=== PATIENT | female | born 1955 | race Caucasian/White ===

== ENCOUNTER 2024-05-23 08:46 | Emergency (ER) | payer MEDICARE, SELFPAY ==
--- NOTE | ~2024-05-23 | XR_ITS ---
Clinical Indication: Cough PA and lateral views of the chest: Comparison: None Findings: The lungs are clear, without evidence of focal consolidation or pleural effusion. Cardiome diastinal silhouette is within normal limits. Bones and soft tissues are unremarkable. Impression: Normal chest. Reviewed, dictated and finalized at location . Impression: Normal chest.
[2024-05-23 08:58] VITALS: BP 157/98; PULSE 65; RESP 20; TEMP 36.9; O2SAT 96
--- OUTSIDE RECORDS SUMMARY | 2024-05-23 09:20 | XMS_ITS | Encounter Summary ---
Author Organization [facility] Address [address] [facility] [place] [address] Phone Care Team Providers Care Icer Air Conditioning Name Role Phone Maria A Younger MD Primary Care Provider [phone]- [phone] Reason for Visit * Reason Comments Medication Refill Encounter Details Date Type Department Care Team (Late st Contact Info) Description 08/18/2023 Refill [facility] - Primary Care - [place] [address] [place] [address] Maria A Younger MD [address] [place] [address] Medication Refill Social History Tobacco Use Types Packs/Day Years Used Date Smoking Tobacco: Former Cigarettes Q uit: 01/31/2022 Smokeless Tobacco: Never Alcohol Use Standard Drinks/Week Comments No 0 (1 standard drink = 0.6 oz pur e alcohol) [facility] Utilities Answer Date Recorded In the past 12 months has [employer] electric, gas, oil, or water company threatened to shut off services in your home? No 04/12/2023 Social Connection and Isolat ion Panel [NHANES] Answer Date Recorded In a typical week, how many times do you talk on the phone with family, friends, or neighbors? More than three times a week 04/12/2023 How often do you get togethe r with friends or relatives? More than three times a week 04/12/2023 How often do you attend chur ch or episcopalian services? Never 04/12/2023 Do you belong to any clubs o r organizations such as bahai groups, unions, fraternal or athletic groups, or school groups? No 04/12/2023 How often do you attend meet ings of the clubs or organizations you belong to? Never 04/12/2023 Are you , , di vorced, , never , or living with a partner? 04/12/2023 AUDIT-C Answer Date Recorded Q1: How often do you have a drink containing alcohol? Never 04/12/2023 Q2: How many drinks containi ng alcohol do you have on a typical day when you are drinking? Patient does not drink Q3: How often do you have si x or more drinks on one occasion? Never 04/12/2023 Overall Financial Resource Strain (CARDIA) Answe r Date Recorded How hard is it for you to pa y for the very basics like food, housing, medical care, and heating? Somewhat hard 04/12/2023 PHQ-2 Answer Date Recorded PHQ-2 Score 0 11/20/2018 [facility] [place] of Occupat ional Health - Occupational Stress Questionnaire Answer Date Recorded Do you feel stress - tense, restless, nervous, or anxious, or unable to sleep at night because your mind is troubled all the time - these days? Only a little 04/12/2023 Exercise Vital Sign Answer Date Recorde d On average, how many days pe r week do you engage in moderate to strenuous exercise (like a brisk walk)? 3 days 04/12/2023 On average, how many minutes do you engage in exercise at this level? 30 min 04/12/2023 Hunger Vital Sign Answer Date Recorded Within the past 12 months, y ou worried that your food would run out before you got the money to buy more. Never true 04/12/19 24 Within the past 12 months, t he food you bought just didn't last and you didn't have money to get more. Never true 04/12/2023 PRAPARE - Transportation Answer Date Re corded In the past 12 months, has l ack of transportation kept you from medical appointments or from getting medications? No 06/2023 In the past 12 months, has l ack of transportation kept you from meetings, work, or from getting things needed for daily living? No 04/12/2023 Housing Stability Vital Sign Answer Geovanni e Recorded In the last 12 months, was t here a time when you were not able to pay the mortgage or rent on time? No 04/12/2023 In the last 12 months, how many places have you lived? 1 04/12/2023 In the last 12 months, was t here a time when you did not have a steady place to sleep or slept in a mcc (including now)? No 04/12/2023 Education Answer Date Recorded What is the highest level of school you have completed or the highest degree you have received? Associate degree: academic program 10/01/2022 Comments No Sex and Gender Information Value Date Recorded Sex Assigned at Not on file Legal Sex Female 8:56 PM CDT Gender Identity Not on file Sexual Orientation Not on file documented as of this encounter Miscellaneous Notes * Telephone Encounter - Jefry Bello RN - 08/18/2023 8:11 AM CDT Medication(s) refilled and signed per [facility] Chronic Medication Refill Standing Order for Pediatricand Adult Patients. Requested Prescriptions Pending Prescriptions Disp Refills atenolol (TENORMIN) 50 MG Tablet [Pharmacy Med Name: ATENOLOL 50 MG TABLET] 180 Tablet 0 Sig: TAKE 1 TABLET BY MOUTH TWICE A DAY Atenolol Protocol Passed - 08/18/2023 12:18 AM Passed - BP on record in the past year Clinician-entered: BP Readings from Last 3 Encounters: 04/14/23 126/76 02/03/23 140/78 11/04/22 122/60 Patient-entered: No data recorded Passed - Visit with relevant provider in past 12 months or upcoming 90 days Recent Visits Date Type Provider Dept 04/14/23 Office Visit Maria A Younger MD [facility] 02/03/23 Office Visit Maria A Younger MD [facility] 11/04/22 Office Visit Mercedez Strauss MD [facility] 10/08/22 Office Visit Mercedez Strauss MD [facility] Showing recent visits within past 365 days and meeting all other requirements Future Appointments No visits were found meeting these conditions. Showing future appointments within next 90 days and meeting all other requirements documented in this encounter Plan of Treatment Upcoming Encounters Date Type Department Care Team (Late st Contact Info) Description 06/02/2024 4:00 PM CDT [facility] - [place] [address] [place] [address] Marissa Khan, HELICOPTER CREW CHIEF, DECORATING SUPERVISOR [address] [place] [address] documented as of this encounter Visit Diagnoses Diagnosis Essential hypertension Unspecified essential hypertension documented in this encounter Additional Health Concerns Assessment Noted Time PHQ-9 Depression Total Score: 0 03/17/19 20 11:00 AM OPERATIONS EXECUTIVE documented as of this encounter Care Teams Icer Air Conditioning Relationship Specialty Start Date End Date Maria A Younger MD [address] [place] [address] PCP - General Family Medicine 04/14/23 documented as of this encounter
--- OUTSIDE RECORDS SUMMARY | 2024-05-23 09:20 | XMS_ITS | Encounter Summary ---
Author Organization [facility] Address [address] [place] [address] Phone Care Team Providers Care Printed Circuit Board Pcb Draftsman Name Role Phone Tiffanie Child MD Primary Care Provider + [phone] Mercedez Strauss MD Primary Care Provider + [phone] Maria A Younger MD Primary Care Provider + [phone] Reason for Visit * Reason Comments Medication Refill Encounter Details Date Type Department Care Team (Late st Contact Info) Description 03/27/2020 [facility] [address] [place] [address] Tiffanie Child MD [address] [place] [address] Medication Refill Social History Tobacco Use Types Packs/Day Years Used Date Smoking Tobacco: Former Cigarettes Q uit: 10/07/2016 Smokeless Tobacco: Never Alcohol Use Standard Drinks/Week Comments No 0 (1 standard drink = 0.6 oz pur e alcohol) PHQ-2 Answer Date Recorded PHQ-2 Score 0 11/20/2018 Comments No Sex and Gender Information Value Date Recorded Sex Assigned at Not on file Legal Sex Female 8:56 PM CDT Gender Identity Not on file Sexual Orientation Not on file COVID-19 Exposure Response Date Recorded In the last month, have you been in contact with someone who was confirmed or suspected to have Coronavirus / COVID-19? No / Unsure 03/07/2020 8:51 AM FOOD AIDE documented as of this encounter Miscellaneous Notes * Telephone Encounter - Daisha Ramos RN - 03/27/2020 10:52 AM FOOD AIDE Medication approved and signed per standing order protocol. AIDE documented in this encounter Plan of Treatment Upcoming Encounters Date Type Department Care Team (Late st Contact Info) Description 06/02/2024 4:00 PM CDT [facility] - [facility] Care - [place] [address] [place] [address] Marissa Khan, NEAR EAST ARCHEOLOGY PROFESSOR, STRAP BUCKLER MACHINE [address] [place] [address] documented as of this encounter Visit Diagnoses Diagnosis Essential hypertension Unspecified essential hypertension Hyperlipidemia, unspecified hyperlipidemia type documented in this encounter Additional Health Concerns Infection Onset Date Last Indicated Resolved Time COVID - 19 01/31/2022 01/31/2022 02/10/2022 12:1 9 AM FOOD AIDE Assessment Noted Time PHQ-9 Depression Total Score: 0 03/17/19 20 11:00 AM FOOD AIDE documented as of this encounter Care Teams Printed Circuit Board Pcb Draftsman Relationship Specialty Start Date End Date Tiffanie Child MD PCP - General Family Medicine 11/25/14 02/13/22 Mercedez Strauss MD [address] [place] [address] PCP - General Family Medicine 02/14/22 04/13/23 Maria A Younger MD [address] [place] [address] PCP - General Family Medicine 04/14/23 documented as of this encounter
--- OUTSIDE RECORDS SUMMARY | 2024-05-23 09:20 | XMS_ITS | Referral Summary ---
Author Organization [facility] [employer] Address [address] [place] [place] [address] Care Team Providers Care Machinist Mechanic Name Role Phone Maria A Younger MD Primary Care Provider [phone] Source Comments [facility],non-owned Affiliates and Associated Physician Practices is amultiple site organization consisting of ambulatory clinics and hospital sitesin [place], [place], [place] and [place]. This disclosure is being madepursuant to the Care Everywhere program and may not contain all information available regarding this patient. Last updated 17.[facility] [employer] Social History Tobacco Use Types Packs/Day Years Used Date Smoking Tobacco: Never Assessed Sex and Gender Information Value Date Recorded Sex Assigned at Not on file Gender Identity Not on file Sexual Orientation Not on file Plan of Treatment Not on file Care Teams Machinist Mechanic Relationship Specialty Start Date End Date Maria A Younger MD [address] [place] [phone] PCP - General Family Medicine 08/31/23
--- OUTSIDE RECORDS SUMMARY | 2024-05-23 09:20 | XMS_ITS | Encounter Summary ---
Author Organization [facility] Address [address] [place] [address] Phone Care Team Providers Care Melter Supervisor Name Role Phone Tiffanie Child MD Primary Care Provider + [phone] Mercedez Strauss MD Primary Care Provider + [phone] Maria A Younger MD Primary Care Provider + [phone] Reason for Visit * Reason Comments Medication Refill Encounter Details Date Type Department Care Team (Late st Contact Info) Description 12/31/2021 Refill [facility] - Primary Care - [place] [address] [place] [address] Tiffanie Child MD [address] [place] [address] Medication Refill Social History Tobacco [...] encounter Miscellaneous Notes * Telephone Encounter - Tiffanie Child MD - 12/31/2021 1:06 PM CDT Last fasting labs done in November 2020. Need follow-up with labs done prior. * Telephone Encounter - Dolly Eduardo RN - 12/31/2021 8:58 AM CDT Medication failed the protocol, provider to review and approve the medication order if appropriate. Requested Prescriptions Pending Prescriptions Disp Refills atorvastatin (LIPITOR) 10 MG Tablet [Pharmacy Med Name: ATORVASTATIN CALCIUM 10MG TABLET] 90 Tablet0 Sig: TAKE 1 TABLET BY MOUTH EVERY DAY Hmg CoA Reductase Inhibitors Protocol Failed - 12/31/2021 8:50 AM Failed - Lipid panel in past 12 months LDL Date Value Ref Range Status 12/04/2020 68 5 - 130 mg/dL Final HDL CHOLESTEROL Date Value Ref Range Status 12/04/2020 47.9 >40 mg/dL Final CHOLESTEROL Date Value Ref Range Status 12/04/2020 134 <=200 mg/dL Final TRIGLYCERIDES Date Value Ref Range Status 12/04/2020 89 <150 mg/dL Final VLDL Date Value Ref Range Status 12/04/2020 18 5 - 55 mg/dL Final CHOL/HDL RATIO Date Value Ref Range Status 12/04/2020 2.8 0.0 - 4.4 Final NON-HDL CHOLESTEROL Date Value Ref Range Status 12/04/2020 86.1 <130 mg/dL Final Passed - Visit with relevant provider in past 12 months or upcoming 90 days Recent Visits Date Type Provider Dept 11/21/21 Office Visit Tiffanie Child MD [facility] 11/13/21 Office Visit Mauri Rosen PAC [facility] Showing recent visits within past 365 days and meeting all other requirements Future Appointments No visits were found meeting these conditions. Showing future appointments within next 90 days and meeting all other requirements levothyroxine (SYNTHROID) 50 MCG Tablet [Pharmacy Med Name: LEVOTHYROXINE SODIUM 50MCG TABLET] 90 Tablet 0 Sig: TAKE 1 TABLET BY MOUTH EVERY DAY Thyroid Hormones Protocol Failed - 12/31/2021 8:50 AM Failed - Normal TSH in past 12 months TSH Date Value Ref Range Status 12/04/2020 2.140 0.270 - 4.200 mIU/L Final Passed - Visit with relevant provider in past 12 months or upcoming 90 days Recent Visits Date Type Provider Dept 11/21/21 Office Visit Tiffanie Child MD [facility] [address] 11/13/21 Office Visit Mauri Rosen PAC [facility] Showing recent visits within past 365 days and meeting all other requirements Future Appointments No visits were found meeting these conditions. Showing future appointments within next 90 days and meeting all other requirements lisinopril-hydroCHLOROthiazide (PRINZIDE, ZESTORETIC) 20-12.5 MG Tablet [Pharmacy Med Name: LISINOPRIL/HYDROCHLOROTHIAZIDE 20-12.5 TABLET] 180 Tablet 0 Sig: TAKE 1 TAB BY MOUTH 2 TIMES DAILY. Nickolas Inhibitors and Diuretics Combo Protocol Failed - 12/31/2021 8:50 AM Failed - Serum potassium on record in past 12 months POTASSIUM Date Value Ref Range Status 12/04/2020 4.5 3.5 - 5.1 mmol/L Final Failed - Serum sodium on record in past 12 months SODIUM Date Value Ref Range Status 12/04/2020 138 136 - 144 mmol/L Final Failed - GFR on record in past 12 months GFR, EST. NONAFRICAN Date Value Ref Range Status 12/04/2020 >60 >=60 Final Passed - Blood pressure on record in past 12 months Clinician-entered: BP Readings from Last 3 Encounters: 11/21/21 120/70 11/13/21 120/58 12/11/20 120/64 Patient-entered: No data recorded Passed - Visit with relevant provider in past 12 months or upcoming 90 days Recent Visits Date Type Provider Dept 11/21/21 Office Visit Tiffanie Child MD [facility] 11/13/21 Office Visit Mauri Rosen PAC [facility] Showing recent visits within past 365 days and meeting all other requirements Future Appointments No visits were found meeting these conditions. Showing future appointments within next 90 days and meeting all other requirements documented in this encounter Plan of Treatment Upcoming Encounters Date Type Department Care Team (Chet st Contact Info) Description 06/02/2024 4:00 PM CDT [facility] - Primary Care - [place] [address] [place] [address] Marissa Khan, WAREHOUSE DISTRIBUTION SPECIALIST, FACIALIST [address] [place] [address] documented as of this encounter Visit Diagnoses Diagnosis Hyperlipidemia, unspecified hyperlipidemia type Hypothyroidism (acquired) Unspecified hypothyroidism Essential hypertension Unspecified essential hypertension documented in this encounter Additional Health Concerns Infection Onset Date Last Indicated Resolved Time COVID - 19 01/31/2022 01/31/2022 02/10/2022 12:1 9 AM CERTIFIED PHYSICIAN ASSISTANT Assessment Noted Time PHQ-9 Depression Total Score: 0 03/17/19 20 11:00 AM CERTIFIED PHYSICIAN ASSISTANT documented as of this encounter Care Teams Melter Supervisor Relationship Specialty Start Date End Date Tiffanie Child MD PCP - General Family Medicine 11/25/14 02/13/22 Mercedez Strauss MD [address] [place] [address] PCP - General Family Medicine 02/14/22 04/13/23 Maria A Younger MD [address] [place] [address] PCP - General Family Medicine 04/14/23 documented as of this encounter
--- OUTSIDE RECORDS SUMMARY | 2024-05-23 09:20 | XMS_ITS | Encounter Summary ---
Author Organization [facility] Address [address] [facility] [place] [address] Phone Care Team Providers Care Loop Tender Name Role Phone Mercedez Strauss MD Primary Care Provider Maria A Younger MD Primary Care Provider +- [phone] Reason for Visit * Reason Comments Medication Refill Encounter Details Date Type Department Care Team (Late st Contact Info) Description 03/17/2023 Refill [facility] Primary Care - [place] [address] [place] [address] Mauri Rosen PAC [address] [place] [address] Medication Refill Social History Tobacco Use Types Packs/Day Years Used Date Smoking Tobacco: Former Cigarettes Q uit: 01/31/2022 Smokeless Tobacco: Never Alcohol Use Standard Drinks/Week Comments No 0 (1 standard drink = 0.6 oz pur e alcohol) PHQ-2 Answer Date Recorded PHQ-2 Score 0 11/20/2018 Education Answer Date Recorded What is the [...] encounter Miscellaneous Notes * Telephone Encounter - Mitzy Mullins RN - 03/19/2023 11:06 AM GAS BURNER OPERATOR Duplicate request. BURNER OPERATOR * Telephone Encounter - Jefry Bello RN - 03/18/2023 9:40 AM CST Attempted to contact pt for [facility] appt. No answer, left message. BURNER OPERATOR documented in this encounter Plan of Treatment Upcoming Encounters Date Type Department Care Team (Late st Contact Info) Description 06/02/2024 4:00 PM CDT [facility] Visit [facility] - [place] [address] [place] [address] Marissa Khan, CASE MANAGEMENT ASSISTANT, THROW OUT CLERK [address] [place] [address] documented as of this encounter Visit Diagnoses Diagnosis Hypothyroidism (acquired) Unspecified hypothyroidism documented in this encounter Additional Health Concerns Assessment Noted Time PHQ-9 Depression Total Score: 0 03/17/19 20 11:00 AM GAS BURNER OPERATOR documented as of this encounter Care Teams Loop Tender Relationship Specialty Start Date End Date Mercedez Strauss MD [address] [place] [address] PCP - General Family Medicine 02/14/22 04/13/23 Maria A Younger MD [address] [place] [address] PCP - General Family Medicine 04/14/23 documented as of this encounter
--- OUTSIDE RECORDS SUMMARY | 2024-05-23 09:20 | XMS_ITS | Encounter Summary ---
Author Organization [facility] Address [address] [facility] [place] [address] Phone Care Team Providers Care Spanish Instructor Name Role Phone Maria A Younger MD Primary Care Provider [phone] Reason for Visit * Reason Comments Medication Refill Encounter Details Date Type Department Care Team (Late st Contact Info) Description 07/01/2023 Refill [facility] - Primary Care - [place] [address] [place] [address] Mercedez Strauss MD [address] [place] [address] Medication Refill Social History Tobacco Use Types Packs/Day Years Used Date Smoking Tobacco: Former Cigarettes Q uit: 01/31/2022 Smokeless Tobacco: Never Alcohol Use Standard Drinks/Week Comments No 0 (1 standard drink = 0.6 oz pur e alcohol) [facility] Utilities Answer Date Recorded In the past 12 months has [employer] electric, gas, oil, or water company threatened [...] often do you attend chur ch or adventism services? Never 04/12/2023 Do you belong to any clubs o r organizations such as denominational groups, unions, fraternal or athletic groups, or [...] Answer Date Recorded PHQ-2 Score 0 11/20/2018 [facility] [place] of Occupat ional Health - Occupational Stress [...] place to sleep or slept in a half-way (including now)? No 04/12/2023 Education Answer Date [...] encounter Miscellaneous Notes * Telephone Encounter - Esther Quintanilla RN - 07/01/2023 8:30 AM CDT Medication(s) refilled and signed per [facility] Chronic Medication Refill Standing Order for Pediatricand Adult Patients. Requested Prescriptions Pending Prescriptions Disp Refills alendronate (FOSAMAX) 70 MG Tablet [Pharmacy Med Name: ALENDRONATE SODIUM 70 MG TAB] 12 Tablet 0 Sig: TAKE 1 TABLET BY MOUTH ONE TIME PER WEEK Bone Density Regulators Protocol Passed - 07/01/2023 12:07 AM Passed - Visit with relevant provider in past 12 months or upcoming 90 days Recent Visits Date Type Provider Dept 04/14/23 Office Visit Maria A Younger MD [facility] 02/03/23 Office Visit Maria A Younger MD [facility] 11/04/22 Office Visit Mercedez Strauss MD [facility] 10/08/22 Office Visit Mercedez Strauss MD [facility] Showing recent visits within past 365 days and meeting all other requirements Future Appointments No visits were found meeting these conditions. Showing future appointments within next 90 days and meeting all other requirements Passed - Serum creatinine on record in past 12 months CREATININE, BLOOD Date Value Ref Range Status 10/08/2022 0.56 (L) 0.60 - 1.10 mg/dL Final Passed - Serum calcium on record in past 12 months CALCIUM Date Value Ref Range Status 10/08/2022 9.4 8.7 - 10.5 mg/dL Final documented in this encounter Plan of Treatment Upcoming Encounters Date Type Department Care Team (Late st Contact Info) Description 06/02/2024 4:00 PM CDT Office Visit [facility] - Primary Care - [place] [address] [place] [address] Marissa Khan APRN, KICK PRESS SETTER [address] [place] [address] documented as of this encounter Visit Diagnoses Diagnosis Low bone density documented in this encounter Additional Health Concerns Assessment Noted Time PHQ-9 Depression Total Score: 0 03/17/19 20 11:00 AM FINANCE ACCOUNTING INTERNSHIP documented as of this encounter Care Teams Spanish Instructor Relationship Specialty Start Date End Date Maria A Younger MD [address] [place] [address] PCP - General Family Medicine 04/14/23 documented as of this encounter
--- OUTSIDE RECORDS SUMMARY | 2024-05-23 09:20 | XMS_ITS | Clinical Summary ---
Author Organization [facility] Address [address] [place] [address] Care Team Providers Care Supply Tech Name Role Phone Maria A Younger MD Primary Care Provider [phone] Source Comments [facility],non-owned Affiliates and Associated Physician Practices is amultiple site organization consisting of ambulatory clinics and hospital sitesin [place], [place], [place] and [place]. This disclosure is being madepursuant to the Care Everywhere program and may not contain all information available regarding this patient. Last updated 17.[facility] Social History Tobacco Use Types Packs/Day Years Used Date Smoking Tobacco: Never Assessed Sex and Gender Information Value Date Recorded Sex Assigned at Not on file Gender Identity Not on file Sexual Orientation Not on file Plan of Treatment Health Maintenance Due Date Last Done Comments COLOGUARD (AGES 45-75) - COLON CA SCREENING 1956 COLON MONITORING 1956 COLONOSCOPY - COLON CA SCREENING 1956 CT COLONOGRAPHY - COLON CA SCREENING 1956 Colorectal Cancer Screening 1956 FIT - COLON CA SCREENING 1956 FLEX SIG - COLON CA SCREENING 1956 LIPID TESTING 1956 HEPATITIS C SCREENING 12/18/1974 DTAP/TDAP/TD VACCINES (1 - Tdap) 12/23/1975 PNEUMOCOCCAL VACCINE 50+ (1 of 1 - PCV) 2006 ZOSTER VACCINE (1 of 2) 2006 COVID-19 VACCINE (1 - 2023- season) 2023 INFLUENZA VACCINE (#1) 2023 2, 12/11/2020, 12/13/2019, Additional history exists DEPRESSION SCREENING 03/09/2024 MAMMOGRAM 01/01/2025 01/01/2023, 12/08, 12/25/2020, Additional history exists Respiratory Syncytial Virus (RSV) Vaccine Pt: or over 60 yrs (1 - 1-dose 75+ series) 12/23/2031 BONE DENSITY TESTING Completed 04/28/2022 HEPATITIS B VACCINE Aged Out No longe r eligible based on patient's age to complete this topic HIB VACCINE Aged Out No longer eligi ble based on patient's age to complete this topic HPV VACCINE Aged Out No longer eligi ble based on patient's age to complete this topic MENINGOCOCCAL (Group B) VACCINE SHARED DECISION-MAKING Aged Out No longer eligible based on patient's age to complete this topic MENINGOCOCCAL GROUPS A/C/Y/W VACCINE Aged Out No longer eligible based on patient's age to complete this topic Care Teams Supply Tech Relationship Specialty Start Date End Date Maria A Younger MD [address] [place] [phone] PCP - General Family Medicine 08/31/23
--- OUTSIDE RECORDS SUMMARY | 2024-05-23 09:20 | XMS_ITS | Encounter Summary ---
Author Organization [facility] Address [address] [place] [address] Phone Care Team Providers Care Steel Engraver Name Role Phone Mercedez Strauss MD Primary Care Provider Maria A Younger MD Primary Care Provider [phone] Reason for Visit * Reason Comments Medication Refill Encounter Details Date Type Department Care Team (Late st Contact Info) Description 04/10/2023 Refill [facility] - Primary Care - Akhil [address] [place] [address] Mercedez Strauss MD [address] [place] [address] Medication Refill Social History Tobacco Use Types Packs/Day Years Used Date Smoking Tobacco: Former Cigarettes Q uit: 01/31/2022 Smokeless Tobacco: Never Alcohol Use Standard Drinks/Week Comments No 0 (1 standard drink = 0.6 oz pur e alcohol) [facility] Utilities Answer Date Recorded In the past 12 months has [employer], gas, oil, or water company threatened to [...] often do you attend chur ch or jain services? Never 04/12/2023 Do you belong to any clubs o r organizations such as zoroastrianism groups, unions, fraternal or athletic groups, or [...] Answer Date Recorded PHQ-2 Score 0 11/20/2018 [facility] [place] of Occupat ional Health - Occupational Stress [...] place to sleep or slept in a fdc (including now)? No 04/12/2023 Education Answer Date [...] on file documented as of this encounter Functional Status * Audit-C Score Answer Date of Assessment Author 0 04/12/2023 10:09 AM HOME HEALTH CAREGIVER [employer], System Background * Within the last year, have you been humiliated or emotionally abused in other ways by your partner or ex-partner? Answer Date of Assessment Author No 04/12/2023 10:09 AM HOME HEALTH CAREGIVER [employer], System Background * Within the last year, have you been afraid of your partner or ex-partner? Answer Date of Assessment Author No 04/12/2023 10:09 AM HOME HEALTH CAREGIVER [employer], System Background * Within the last year, have you been raped or forced to have any kind of sexual activity by your partner or ex-partner? Answer Date of Assessment Author No 04/12/2023 10:09 AM HOME HEALTH CAREGIVER [employer], System Background * Within the last year, have you been kicked, hit, slapped, or otherwise physically hurt by your partner or ex-partner? Answer Date of Assessment Author No 04/12/2023 10:09 AM HOME HEALTH CAREGIVER My[employer], System Background * Q1: How often do you have a drink containing alcohol? Answer Date of Assessment Author Never 04/12/2023 10:09 AM HOME HEALTH CAREGIVER [employer], System Background * Q2: How many drinks containing alcohol do you have on a typical day when you are drinking? Answer Date of Assessment Author Patient does not drink 04/12/2023 10:09 AM HOME HEALTH CAREGIVER [employer], System Background * Q3: How often do you have six or more drinks on one occasion? Answer Date of Assessment Author Never 04/12/2023 10:09 AM HOME HEALTH CAREGIVER [employer], System Background documented as of this encounter Plan of Treatment Upcoming Encounters Date Type Department Care Team (Late st Contact Info) Description 06/02/2024 4:00 PM CDT Office Visit [facility] - Primary Care - [place] [address] [place] [address] Marissa Khan, EDUCATIONAL PROGRAM DIRECTOR, POLITICAL CARTOONIST [address] [place] [address] documented as of this encounter Visit Diagnoses Diagnosis Low bone density documented in this encounter Additional Health Concerns Assessment Noted Time PHQ-9 Depression Total Score: 0 03/17/19 20 11:00 AM HOME HEALTH CAREGIVER documented as of this encounter Care Teams Steel Engraver Relationship Specialty Start Date End Date Mercedez Strauss MD [address] [place] [address] PCP - General Family Medicine 02/14/22 04/13/23 Maria A Younger MD [address] [place] [address] PCP - General Family Medicine 04/14/23 documented as of this encounter
--- OUTSIDE RECORDS SUMMARY | 2024-05-23 09:20 | XMS_ITS | Encounter Summary ---
Author Organization [facility] Address [address] [facility] [address] Phone Care Team Providers Care Wire Mesh Gate Assembler Name Role Phone Maria A Younger MD Primary Care Provider [phone] Reason for Visit * Reason Comments Medication Refill Encounter Details Date Type Department Care Team (Late st Contact Info) Description 08/22/[address] [facility] - Primary Care - Akhil [address] [place] [address] Maria A Younger MD [address] [place] [address] Medication Refill Social History Tobacco Use Types Packs/Day Years Used Date Smoking Tobacco: Former Cigarettes Q uit: 01/31/2022 Smokeless Tobacco: Never Alcohol Use Standard Drinks/Week Comments No 0 (1 standard drink = 0.6 oz pur e alcohol) [facility] Utilities Answer Date Recorded In the past 12 months has [employer] electric, gas, oil, or water company threatened [...] often do you attend chur ch or catholic services? Never 04/12/2023 Do you belong to any clubs o r organizations such as worship groups, unions, fraternal or athletic groups, or [...] Answer Date Recorded PHQ-2 Score 0 11/20/2018 [facility] [place] of Occupat ional Health - Occupational Stress [...] place to sleep or slept in a prison (including now)? No 04/12/2023 Education Answer Date [...] Telephone Encounter - Jefry Bello RN - 08/24/2023 8:51 AM CDT Medication(s) refilled and signed per [facility] Chronic Medication Refill Standing Order for Pediatricand Adult Patients. Requested Prescriptions Pending Prescriptions Disp Refills atorvastatin (LIPITOR) 10 MG Tablet [Pharmacy Med Name: ATORVASTATIN 10 MG TABLET] 90 Tablet 0 Sig: TAKE 1 TABLET BY MOUTH EVERY DAY Hmg CoA Reductase Inhibitors Protocol Passed - 08/22/2023 7:14 AM Passed - Visit with relevant provider in past 12 months or upcoming 90 days Recent Visits Date Type Provider Dept 04/14/23 Office Visit Maria A Younger MD [facility] 02/03/23 Office Visit Maria A Younger MD [facility] 11/04/22 Office Visit Mercedez Strauss MD [facility] 10/08/22 Office Visit Mercedez Strauss MD [facility] Showing recent visits within past 365 days and meeting all other requirements Future Appointments No visits were found meeting these conditions. Showing future appointments within next 90 days and meeting all other requirements Passed - Lipid panel in past 12 months LDL Date Value Ref Range Status 10/08/2022 68 5 - 130 mg/dL Final HDL CHOLESTEROL Date Value Ref Range Status 10/08/2022 44.5 >40 mg/dL Final CHOLESTEROL Date Value Ref Range Status 10/08/2022 134 <200 mg/dL Final TRIGLYCERIDES Date Value Ref Range Status 10/08/2022 106 <150 mg/dL Final VLDL Date Value Ref Range Status 10/08/2022 21 5 - 55 mg/dL Final CHOL/HDL RATIO Date Value Ref Range Status 10/08/2022 3.0 0.0 - 4.4 Final NON-HDL CHOLESTEROL Date Value Ref Range Status 10/08/2022 89.5 <130 mg/dL Final Passed - CMP in past 12 months SODIUM Date Value Ref Range Status 10/08/2022 137 136 - 144 mmol/L Final POTASSIUM Date Value Ref Range Status 10/08/2022 4.1 3.5 - 5.1 mmol/L Final CHLORIDE Date Value Ref Range Status 10/08/2022 100 100 - 110 mmol/L Final CO2, VENOUS Date Value Ref Range Status 10/08/2022 27 22 - 32 mmol/L Final ANION GAP Date Value Ref Range Status 10/08/2022 14.1 8.0 - 20.0 mmol/L Final GLUCOSE Date Value Ref Range Status 10/08/2022 92 70 - 99 mg/dL Final BUN Date Value Ref Range Status 10/08/2022 12 8 - 23 mg/dL Final CREATININE, BLOOD Date Value Ref Range Status 10/08/2022 0.56 (L) 0.60 - 1.10 mg/dL Final BUN/CREATININE RATIO Date Value Ref Range Status 10/08/2022 21 (H) 12 - 20 ratio Final TOTAL PROTEIN Date Value Ref Range Status 10/08/2022 6.7 6.0 - 8.3 g/dL Final ALBUMIN Date Value Ref Range Status 10/08/2022 4.2 3.5 - 5.2 g/dL Final Comment: The colormetric methods used for the determination of Albumin may lead to falsely elevated test results in patients suffering from renal failure or insufficiency due to interference with other proteins. A/G RATIO Date Value Ref Range Status 10/08/2022 1.7 1.0 - 2.0 Final CALCIUM Date Value Ref Range Status 10/08/2022 9.4 8.7 - 10.5 mg/dL Final T BILI Date Value Ref Range Status 10/08/2022 0.5 0.2 - 1.2 mg/dL Final SGOT (AST) Date Value Ref Range Status 10/08/2022 18 <=32 U/L Final SGPT (ALT) Date Value Ref Range Status 10/08/2022 18 <=41 U/L Final ALKALINE PHOSPHATASE Date Value Ref Range Status 10/08/2022 67 35 - 105 U/L Final GFR, EST. NONAFRICAN Date Value Ref Range Status 10/08/2022 >60 >=60 Final GFR, EST. Date Value Ref Range Status 10/08/2022 >60 >=60 Final GFR, ESTIMATED Date Value Ref Range Status 10/08/2022 >60 >=60 Final Comment: Creatinine Clearance is the preferred criteria for selecting drug dose adjustments in renally impaired patients. The GFR is provided as additional pertinent clinical information. GFR is reported in mL/min/1.73 sq m. Calculation based on the Chronic Kidney Disease Epidemiology Collaboration (CKD- EPI) equation refitwithout adjustment for race. IS THE PATIENT REQUIRED TO BE FASTING? Date Value Ref Range Status 10/08/2022 No Final documented in this encounter Plan of Treatment Upcoming Encounters Date Type Department Care Team (Late st Contact Info) Description 06/02/2024 4:00 PM CDT Office Visit [facility] - Primary Care - Akhil [address] [place] [address] Marissa Khan, SENIOR SQL DEVELOPER, FUR MIXER OPERATOR [address] [place] [address] documented as of this encounter Visit Diagnoses Diagnosis Hyperlipidemia, unspecified hyperlipidemia type documented in this encounter Additional Health Concerns Assessment Noted Time PHQ-9 Depression Total Score: 0 03/17/19 20 11:00 AM ENTRY LEVEL STAFF ACCOUNTANT documented as of this encounter Care Teams Wire Mesh Gate Assembler Relationship Specialty Start Date End Date Maria A Younger MD [address] [place] [address] PCP - General Family Medicine 04/14/23 documented as of this encounter
--- OUTSIDE RECORDS SUMMARY | 2024-05-23 09:20 | XMS_ITS | Patient Health Summary ---
Author Organization [facility] Address [address] [place] [address] Care Team Providers Care Foreign Language Professor Name Role Phone Maria A Younger MD Primary Care Provider [phone] Note from [facility],non-owned Affiliates and Associated Physician Practices is amultiple site organization consisting of ambulatory clinics and hospital sitesin [place], [place], [place] and [place]. This disclosure is being madepursuant to the Care Everywhere program and may not contain all information available regarding this patient. Last updated 17.[facility] Social History Tobacco Use Types Packs/Day Years Used Date Smoking Tobacco: Never Assessed Sex and Gender Information Value Date Recorded Sex Assigned at Not on file Gender Identity Not on file Sexual Orientation Not on file Care Teams Foreign Language Professor Relationship Specialty Start Date End Date Maria A Younger MD [address] [place] [phone] PCP - General Family Medicine 08/31/23
--- OUTSIDE RECORDS SUMMARY | 2024-05-23 09:20 | XMS_ITS | Encounter Summary ---
Author Organization [facility] Address [address] [facility] [place] [address] Phone Care Team Providers Care University Tutor Name Role Phone Maria A Younger MD Primary Care Provider [phone] Reason for Visit * Reason Onset Date Comments Cough 05/23/2024 Nasal Congestion 05/23/2024 Encounter Details Date Type Department Care Team (Late st Contact Info) Description 05/23/2024 Nurse Triage [facility] [address] [place] [address] Maria A Younger MD [address] [place] [address] Cough; Nasal Congestion Social History Tobacco Use Types Packs/Day Years Used Date Smoking Tobacco: Former Cigarettes Q uit: 01/31/2022 Smokeless Tobacco: Never Alcohol Use Standard Drinks/Week Comments No 0 (1 standard drink = 0.6 oz pur e alcohol) [facility] Utilities Answer Date Recorded In the past 12 months has [employer] electric, gas, oil, or water company threatened [...] often do you attend chur ch or restorationism services? Never 04/12/2023 Do you belong to any clubs o r organizations such as pentecostalism groups, unions, fraternal or athletic groups, or [...] Answer Date Recorded PHQ-2 Score 0 11/20/2018 [facility] of Occupat ional Health - Occupational Stress [...] place to sleep or slept in a fci (including now)? No 04/12/2023 Education Answer Date [...] Miscellaneous Notes * Telephone Encounter - Jefry Omer RN - 05/23/2024 7:37 AM CDT SITUATION: cold symptoms BACKGROUND: Patient contacting PCP office. Started 2 weeks ago, started with sore throat and chills ASSESSMENT: Symptom Description / Location: Sinus drainage Sinus pressure/throbbing sensation Only with certain movements 2 weeks Cough The last couple of days Productive Green phlegm. Shortness of breath with exertion And with coughing fits SPO2: 98% HR: 73 bpm Pain: Caller denies pain. Fever: Denies fever. Chills. Treatment / Response: coricidin with some relief. RECOMMENDATION: Caller agreeable to disposition: go to office now. Care advice provided per triage guideline. Caller verbalized understanding. Due to office unavailability within disposition, advised for patient to be seen at prompt care or urgent care. Caller agreeable to prompt care/urgent care. Discussed utilizing [facility] to: find [facility] or [facility] - See care advice and disposition for Guideline. First positive answer recorded, all responses to prior questions were negative. If symptoms increase, change or if new symptoms develop, call your health care provider or call back. Recommendations were based on caller information and is not a diagnosis. Verified and reviewed all triage information with caller. Reason for Disposition MILD difficulty breathing (e.g., minimal/no SOB at rest, SOB with walking, pulse <100) and stillpresent when not coughing Protocols used: Cough-A-OH * Telephone Encounter - Mg Adkins - 05/23/2024 7:35 AM CDT Symptoms: Sinus Symptoms, Colds, Chest Congestion, Runny Nose Outcome: Schedule an appointment at earliest convenience. Reason: Caller denied all higher acuity questions The caller accepted this outcome. Caller Denied: * Any trouble breathing through the mouth * Severe headache * Trouble swallowing * Wheezing (high-pitched whistling sound) * Red swelling on cheek or around eye documented in this encounter Plan of Treatment Upcoming Encounters Date Type Department Care Team (Late st Contact Info) Description 06/02/2024 4:00 PM CDT [facility] Care - [place] [address] [place] [phone] Marissa Khan, CARBONATING STONE CLEANER, CHIEF CRNA [address] [place] [address] documented as of this encounter Visit Diagnoses Not on filedocumented in this encounter Additional Health Concerns Assessment Noted Time PHQ-9 Depression Total Score: 0 03/17/19 20 11:00 AM VICE PRESIDENT OF HUMAN RESOURCES documented as of this encounter Care Teams University Tutor Relationship Specialty Start Date End Date Maria A Younger MD [address] [place] [address] PCP - General Family Medicine 04/14/23 documented as of this encounter
--- OUTSIDE RECORDS SUMMARY | 2024-05-23 09:20 | XMS_ITS | Clinical Summary ---
Author Organization [facility] Address [address] [place] [address] Phone Care Team Providers Care Saddle And Side Wire Stitcher Name Role Phone Maria A Younger MD Primary Care Provider [phone] Allergies Active Allergy Reactions Criticality Noted Date Comments Levofloxacin In D5w Other (see Comments) Low 2016 Affects legs- legs were like noodles Penicillins Hives Medium Medications Aspirin 81 MG Tablet Take 81 mg by mouth daily. Active Multiple Vitamin (MULTIVITAMINS PO) Take 1 Tab by mouth daily. Active Ascorbic Acid (Vitamin C) 1000 MG Tablet Take 1,000 mg by mouth daily. Active Cholecalciferol (Vitamin D-3) 125 MCG (5000 UT) Tablet Take 125 mcg by mouth daily. Active calcium 600 MG Tablet Take 600 mg by mouth daily. Active lisinopril-hydroCH LOROthiazide (PRINZIDE, ZESTORETIC) 20-12.5 MG TabletIndications: Essential hypertension Take 1 Tablet by mouth daily. 180 Tablet 12/08/19 24 Active atorvastatin (LIPITOR) 10 MG TabletIndications: Hyperlipidemia, unspecified hyperlipidemia type TAKE 1 TABLET BY MOUTH EVERY DAY 90 Tablet 02/15/20 24 Active atenolol (TENORMIN) 50 MG TabletIndications: Essential hypertension TAKE 1 TABLET BY MOUTH TWICE A DAY 180 Tablet 03/07/20 24 Active levothyroxine (SYNTHROID) 50 MCG TabletIndications: Hypothyroidism (acquired) Take 1 Tablet by mouth daily. 90 Tablet 03/08/20 24 Active alendronate (FOSAMAX) 70 MG TabletIndications: Low bone density TAKE 1 TABLET BY MOUTH ONE TIME PER WEEK 12 Tablet 05/03/19 25 Active alendronate (FOSAMAX) 70 MG TabletIndications: Low bone density TAKE 1 TABLET BY MOUTH ONE TIME PER WEEK 12 Tablet 02/08/20 24 025 Discontinued Active Problems Problem Noted Date Diagnosed Date COPD with exacerbation 01/31/2022 Tobacco dependency 01/31/2022 Hypomagnesemia 01/31/2022 Pulmonary emphysema 09/25/2016 Hypothyroidism (acquired) 04/16/2015 Essential hypertension 04/16/2015 HLD (hyperlipidemia) 04/16/2015 Vitamin D deficiency 04/16/2015 Osteopenia 04/16/2015 Resolved Problems Problem Noted Date Diagnosed Date Resolved Date Obesity (BMI 30.0-34.9) 01/04/2018 100 07/2020 Tachycardia 01/01/2017 01/04/2018 Encounters Date Type Department Care Team Description 05/23/2024 Nurse Triage [facility] [address] [place] [phone] Maria A Younger MD Cough; Nasal Congestion 05/17/2024 Refill [facility] [place] [address] [place] [address] Maria A Younger MD Medication Refill 05/01/2024 Refill [facility] [place] [id number] [place] [address] Maria A Younger MD Medication Refill 03/08/2024 MyChart RX Renewal [facility] [place] [address] [place] [address] Maria A Younger MD Medication Renewal Reviewed 03/05/2024 Refill [facility] [place] [address] [place] [address] Maria A Younger MD Medication Refill from Last 3 Months Immunizations Immunization Administration Dates Next Due Influenza Vaccine greater than 3 yrs 12/02/2011 Influenza Vaccine, Quadrivalent, PF 12/0 11/2021,12/11/2020,12/13/2019,03/17,01/04/2018 Influenza, Seasonal, Injecta ble, Undefined 12/02/2011 Pneumococcal Vaccine Adult - 23 Valent 0 Pneumococcal conjugate PCV20 , polysaccharide [id number] conjugate, adjuvant, PF 02/14/2022 TDAP Vaccine 04/22/2013 Family History Medical History Relation Name Comments Hypertension Brother Stroke Brother Heart Disease Father Hypertension Father Cancer Mother Hypertension Mother Relation Name Status Comments Brother Father Mother Social History Tobacco Use Types Packs/Day Years Used Date Smoking Tobacco: Former Cigarettes Q uit: 01/31/2022 Smokeless Tobacco: Never Tobacco Cessation:Counseling Given: Not Answered Alcohol Use Standard Drinks/Week Comments No 0 (1 standard drink = 0.6 oz pur e alcohol) [facility] [employer] Answer Date Recorded In the past 12 months has [employer], gas, oil, or water [employer] threatened to shut off services in your [...] often do you attend chur ch or buddhism services? Never 04/12/2023 Do you belong to any clubs o r organizations such as evangelical groups, unions, fraternal or athletic groups, or [...] Answer Date Recorded PHQ-2 Score 0 11/20/2018 [facility] [place] [facility] Occupat ional Health - Occupational Stress [...] place to sleep or slept in a long-term (including now)? No 04/12/2023 Education Answer Date Recorded What is the highest level of school you have completed or the highest degree you have received? Associate degree: academic program 10/01/2022 Comments No Sex and Gender Information Value Date Recorded Sex Assigned at Not on file Legal Sex Female 8:56 PM CDT Gender Identity Not on file Sexual Orientation Not on file Last Filed Vital Signs Vital Sign Reading Time Taken Comments Blood Pressure 120/72 10/19/2023 11:18 AM CDT Pulse 66 10/19/2023 11:18 AM CDT Temperature 36.1 C (97 F) 10/19/2023 11:18 AM CDT Respiratory Rate 20 10/19/2023 11:18 AM CDT Oxygen Saturation 96% 10/19/2023 11:18 AM CDT Inhaled Oxygen Concentration - - Weight 74.4 kg (164 lb) 10/19/2023 11:18 AM CDT Height 154.9 cm (5' 1 ) 10/19/2023 11:18 AM CDT Body Mass Index 30.99 10/19/2023 11:18 AM CDT Plan of Treatment Upcoming Encounters Date Type Department Care Team (Late st Contact Info) Description 06/02/2024 4:00 PM CDT Office Visit [facility] [place] [address] [place] [address] Marissa Khan, BILL HIKER, FOOD CROPS FARM HAND [address] [place], [place] [id number] Health Maintenance Due Date Last Done Comments Cologuard 2006 Immunochemical Fecal Occult Blood 2006 Respiratory Syncytial Virus (RSV) Immunization (Adult) (1 - Risk 60-74 years 1-dose series) 2016 Td Immunization Every 10 Years (Adults With 1 Tdap) 04/22/2023 04/22/2013 SARS-COV-2 Immunization ( - season) 2023 06/14/2020 Mammogram 01/02/2024 01/01/2023, 12/07, 09/27/2018, Additional history exists DEXA Bone Density 04/28/2024 04/28/2022 Zoster Immunization (2 of 2) 05/05/2024 03/10/2024 Colonoscopy 04/27/2027 04/27/2017 Colorectal Cancer Screening 04/27/2027 04/27/2017 Cervical Cancer Screening (CCS) Discontinued HPV/Cotest Discontinued 12/11/2020 Pap Smear Discontinued 12/11/2020, 09/22/2014 Pneumococcal Immunization (50+ years) Completed 02/14/2022, 03/17/2019 Pneumococcal Immunization Combined Discontinued 02/14/2022, 03/17/2019 Hepatitis C Virus (HCV) Screening Completed 10/08/2022 Influenza Immunization Completed 5, 02/14/2022, 12/11/2020, Additional history exists Hepatitis B Immunization Aged Out No longer eligible based on patient's age to complete this topic Meningococcal Immunization (ACWY) Aged Out No longer eligible based on patient's age to complete this topic Rotavirus Immunization Aged Out No lo nger eligible based on patient's age to complete this topic Procedures Procedure Name Priority Date/Time Associated Diagnosis Comments ALBERT SCREENING BILATERAL DIGITAL W CAD W KARI Routine 01/01/2023 3:41 PM CDT Encounter for screening mammogram for breast cancer Post-menopausal HEPATITIS C ANTIBODY Routine 10/08/2022 11:06 AM CDT Need for hepatitis C screening test ALBERT BONE DENSITOMETRY AXIAL SKELETON Routine 04/28/2022 9:48 AM PAPER RULER Arthritis Encounter for screening for osteoporosis PATHOLOGY CYTOLOGY MEAT PULLER Routine 12/11/2020 8:42 AM CDT Well woman exam with routine gynecological exam HUMAN PAPILLOMA VIRUS (HPV) Routine 12/11/2020 8:31 AM CDT Well woman exam with routine gynecological exam HM COLONOSCOPY Routine 04/27/2017 from Last 3 Months or Most Recently Relevant to Health Maintenance Results * ALBERT SCREENING BILATERAL DIGITAL W CAD W KARI (01/01/2023 3:41 PM CDT) Anatomical Region Laterality Modality breast Bilateral Mammography 01/01/2023 3:22 PM CDT Narrative 01/02/2023 7:54 AM CDT - ALBERT SCREENING BILATERAL DIGITAL W CAD W KARI BILATERAL DIGITAL SCREENING MAMMOGRAM 3D/2D WITH CAD WITH MEDIOLATERAL OBLIQUE CRANIOCAUDAL: 01/01/2023 The study was acquired using digital technology and interpreted from soft copy. Current study was also evaluated with ICAD version 7.2. 2D digital mammographic views, as well as 3D digital tomosynthesis were performed in the CC and MLO projections. CLINICAL: Routine screening. Patient has no complaints. Patient has COPD, additional images due to subtle motion. No personal history of cancer. No family history of breast cancer. COMPARISONS: Comparison is made to exams dated: 12/25/2020, 09/27/2018, and 09/22/2017 [facility]. BREAST TISSUE:There are scattered fibroglandular densities in both breasts. FINDINGS: There are benign calcifications in both breasts. No significant masses, calcifications, or other findings are seen in either breast. There has been no significant interval change. IMPRESSION: BI-RAD 2 BENIGN There is no mammographic evidence of malignancy. A 1 year screening mammogram is recommended. A letter will be sent to the patient with these results. The patient will be entered into a reminder system with a target due date of 1 year for her next screening exam. Electronically signed by: Harpal huang/terrence:01/01/2023 23:03:50 Workers' Compensation Mediator(s): RT Margarito(R)(M), [facility] letter sent: Normal Exam Reading location: [facility] BI-RADS: 2 Benign Procedure Note Harpal Krueger MD - 01/02/2023 - ALBERT SCREENING BILATERAL DIGITAL W CAD W KARI BILATERAL DIGITAL SCREENING MAMMOGRAM 3D/2D WITH CAD WITH MEDIOLATERAL OBLIQUE CRANIOCAUDAL: 01/01/2023 The study was acquired using digital technology and interpreted from soft copy. Current study was also evaluated with ICAD version 7.2. 2D digital mammographic views, as well as 3D digital tomosynthesis were performed in the CC and MLO projections. CLINICAL: Routine screening. Patient has no complaints. Patient has COPD, additional images due to subtle motion. No personal history of cancer. No family history of breast cancer. COMPARISONS: Comparison is made to exams dated: 12/25/2020, 09/27/2018, and 09/22/2017 [facility]. BREAST TISSUE:There are scattered fibroglandular densities in both breasts. FINDINGS: There are benign calcifications in both breasts. No significant masses, calcifications, or other findings are seen in either breast. There has been no significant interval change. IMPRESSION: BI-RAD 2 BENIGN There is no mammographic evidence of malignancy. A 1 year screening mammogram is recommended. A letter will be sent to the patient with these results. The patient will be entered into a reminder system with a target due date of 1 year for her next screening exam. Electronically signed by: Harpal huang/terrence:01/01/2023 23:03:50 Workers' Compensation Mediator(s): Jane Gibson RT(R)(M), [facility] letter sent: Normal Exam Reading location: [facility] BI-RADS: 2 Benign us Mercedez Strauss MD IMG MAMMO ORDERABLES Final R esult * HEPATITIS C ANTIBODY (10/08/2022 11:06 AM CDT) hepatitis C antibody 0.13 <1 S/CO [facility] ARCH [id number] B 10/08/2022 9:14 PM CDT [facility] Comment: Signal/Cutoff ratio < 0.79 is Nondetected Signal/Cutoff ratio 0.80-0.99 is Grayzone Signal/Cutoff ratio > 0.99 is Detected Supplemental assays are recommended if signal/cutoff ratio is >/=1.00. Signal/cutoff ratio result >/= 5.00 is 97% predictive of positivity for recombinant immunoblot assay (RIBA) and will be reported to the [place] Department of Public Health as required. Blood Venipuncture / Unknown 10/08/2022 11:06 AM CDT 10/08/2022 11:06 AM CDT us Mercedez Strauss MD CHEMISTRY ORDERABLES Final R esult [facility] [address] [place] [address], [place] * [facility] BONE DENSITOMETRY AXIAL SKELETON (04/28/2022 9:48 AM PAPER RULER) Anatomical Region Laterality Modality BODY N/A Computed Radiogr aphy 04/28/2022 1:33 PM PAPER RULER Impressions 04/28/2022 1:35 PM PAPER RULER IMPRESSION: 1. Low bone mass (osteopenia). 2. Statistically significant decrease in bone mineral density compared to 2013 . 3. 10 year probability of fracture is 10.1% for major osteoporotic fracture and 1.4% for hip fracture based on the FRAX model. REFERENCE: Bone mineral density: Normal (T-score above or = -1.0) Low bone mass (T-score between -1.0 and -2.5) replaces the previously used term osteopenia Osteoporosis (T-score = or below -2.5) Medical evaluation for secondary causes of low bone mineral density may be appropriate. FRAX is a World Health Organization validated fracture risk assessment tool that calculates a person's 10 year probability of a major osteoporosis related fracture and hip fracture. According to the National Osteoporosis Foundation guidelines, postmenopausal women and men age 50 or older with low bone mass and a 10 year probability of a major osteoporosis related fracture = or greater than 20% or a 10 year probability of a hip fracture = or greater than 3% should be considered for treatment. For further information, including treatment recommendations, please refer to the 2013 ISCD Official Positions (http://www.iscd.org) and the NOF's Clinician's Guide to Prevention and Treatment of Osteoporosis (http://www.nof.org/professionals/clinical-guidelines) Narrative 04/28/2022 1:35 PM PAPER RULER EXAM DESCRIPTION: ALBERT BONE DENSITOMETRY AXIAL SKELETON REASON FOR STUDY: 66 y/o year old F with given history of screening. 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 LEFT HIP: Current Total BMD is 0.763 g/cm2 T-score is -1.9 Most recent prior Total BMD was 0.934 g/cm2 There has been a decreased in BMD which is statistically significant. Current femoral neck BMD is 0.777 g/cm2 T-score is -1.9 FRAX: 10 year risk for a major osteoporotic fracture is 10.1 %, 10 year risk for a hip fracture is 1.4 % THIS IS AN ELECTRONICALLY VERIFIED FINAL REPORT 04/28/2022 1:33 PM - Electronically signed by Mulugeta Malik M.D. BC: ECHO Report ID: [id number] Reading Location: [place] [address] Procedure Note Mulugeta Malik MD - 04/28/2022 EXAM DESCRIPTION: [facility] BONE DENSITOMETRY AXIAL SKELETON REASON FOR STUDY: 66 y/o year old F with given history of screening. 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 LEFT HIP: Current Total BMD is 0.763 g/cm2 T-score is -1.9 Most recent prior Total BMD was 0.934 g/cm2 There has been a decreased in BMD which is statistically significant. Current femoral neck BMD is 0.777 g/cm2 T-score is -1.9 FRAX: 10 year risk for a major osteoporotic fracture is 10.1 %, 10 year risk for a hip fracture is 1.4 % THIS IS AN ELECTRONICALLY VERIFIED FINAL REPORT 04/28/2022 1:33 PM - Electronically signed by Mulugeta Malik M.D. BC: ECHO Report ID: [id number] Reading Location: [id number] IMPRESSION: 1. Low bone mass (osteopenia). 2. Statistically significant decrease in bone mineral density compared to 2013 . 3. 10 year probability of fracture is 10.1% for major osteoporotic fracture and 1.4% for hip fracture based on the FRAX model. REFERENCE: Bone mineral density: Normal (T-score above or = -1.0) Low bone mass (T-score between -1.0 and -2.5) replaces the previously used term osteopenia Osteoporosis (T-score = or below -2.5) Medical evaluation for secondary causes of low bone mineral density may be appropriate. FRAX is a World Health Organization validated fracture risk assessment tool that calculates a person's 10 year probability of a major osteoporosis related fracture and hip fracture. According to the National Osteoporosis Foundation guidelines, postmenopausal women and men age 50 or older with low bone mass and a 10 year probability of a major osteoporosis related fracture = or greater than 20% or a 10 year probability of a hip fracture = or greater than 3% should be considered for treatment. For further information, including treatment recommendations, please refer to the 2013 ISCD Official Positions (http://www.iscd.org) and the NOF's Clinician's Guide to Prevention and Treatment of Osteoporosis (http://www.nof.org/professionals/clinical-guidelines) us Mercedez Strauss MD IMG DEXA ORDERABLES Final Re sult * PATHOLOGY CYTOLOGY MEAT PULLER (12/11/2020 8:42 AM CDT) SPECIMEN ADEQUACY Satisfactory for evaluation. Endocervical/transf ormation zone component is present. 01/01/2021 7:39 AM CDT [facility] GENERAL CATEGORY EPITHELIAL CELL ABNORMALITY. 01/01/2021 7:39 AM CDT [facility] DESCRIPTIVE DIAGNOSIS ASCUS: Atypical squamous cells of undetermined significance. 01/01/2021 7:39 AM CDT [facility] Reflex if ASCUS? No 01/01/2021 7:39 AM CDT [facility] Automated Examination Analysis of this sample has been assisted by an automated imaging and review system ([employer] Imaging System, [employer], [place], [place]). This case is further evaluated and finalized by a associate sales and/or pathologist. 01/01/2021 7:39 AM CDT [facility] Disclaimer The PAP smear is a screening test designed to detect cancerous or precancerous cells of the uterine cervix. It is one of the best means available for detection of cervical cancer but still carries an inherent false-negative rate. The consequences of a false-negative PAP result can be minimized by adhering to current screening guidelines. The following are general guidelines recommended by the ACS, ASCP, ASCCP, and ACOG: PAP testing is recommended every three years for women 21-29, Co-Testing , a PAP test in conjunction with an HPV (Human Papillomavirus) test for women ages 30-65, and no PAP or HPV testing for women under the age of 21 or older than 65 unless clinically indicated. 01/01/2021 7:39 AM CDT [facility] Other CERVIX UTERI STRUCTURE / Unknown Non-Phlebotomy Collection / Unknown 12/11/2020 8:42 AM CDT 12/11/2020 8:42 AM CDT us Tiffanie Child MD PATHOLOGY/CYTOLOGY ORDERABLE S Final Result [facility] [address] [place] [address], [place] * HUMAN PAPILLOMA VIRUS (HPV) (12/11/2020 8:31 AM CDT) HPV OTHER HIGH RISK TYPES, PCR NEGATIVE NEGATIVE 12/12/2020 2:51 PM CDT [facility] Comment: The following Other High Risk types were not detected: 31, 33, 35, 39, 45, 51, 52, 56, 58, 59, 66, and 68. A negative high-risk HPV result does not exclude the possibility of future cytologic HSIL or underlying CIN2-3 or cancer. The presence of PCR inhibitors may cause false negative or invalid results. If concentrations of whole blood in the sample exceed 1.5% (dark red or brown coloration) in PreservCyt solution, there is a likelihood of obtaining a false-negative result. HPV TYPE 16 NEGATIVE NEGATIVE 12/12/2020 2:51 PM CDT [facility] Comment: A negative high-risk HPV result does not exclude the possibility of future cytologic HSIL or underlying CIN2-3 or cancer. The presence of PCR inhibitors may cause false negative or invalid results. If concentrations of whole blood in the sample exceed 1.5% (dark red or brown coloration) in PreservCyt solution, there is a likelihood of obtaining a false-negative result. HPV TYPE 18 NEGATIVE NEGATIVE 12/12/2020 2:51 PM CDT [facility] Comment: A negative high-risk HPV result does not exclude the possibility of future cytologic HSIL or underlying CIN2-3 or cancer. The presence of PCR inhibitors may cause false negative or invalid results. If concentrations of whole blood in the sample exceed 1.5% (dark red or brown coloration) in PreservCyt solution, there is a likelihood of obtaining a false-negative result. HPV ORDER BE USED FOR SCREENING OR DIAGNOSTIC SCREENING 12/12/2020 2:51 PM CDT [facility] Other Non-Phlebotomy Collection / Unknown 12/11/2020 8:31 AM CDT 12/11/2020 8:31 AM CDT Narrative [facility] - 12/12/2020 2:51 PM CDT Performed by Real-Time Polymerase Chain Reaction (PCR) on the [employer] 4800. This assay has been validated for use with post-aliquot samples from the [employer] T5000 processor. Tiffanie Child MD LAB SEND OUTS Final Result [facility] [address] [place] [address], [facility] [address] [place] [address] * HM COLONOSCOPY (04/27/2017) Zeus Dumont MD PROCEDURE/MINOR SURGICAL OR DERABLES Final Result from Last 3 Months or Most Recently Relevant to Health Maintenance Insurance MEDICARE C AETNA Advance Directives * Full Code (Latest Code Status on File) Date Activated Date Inactivated Comments 01/31/2022 8:23 PM 02/02/2022 5:34 PM CPR-Full T reatment: FULL ARREST: Attempt Resuscitation/CPR wit intubation and mechanical ventilation. PRE-ARREST: Use entire range of life support measures to stabilize the patient. Care Teams Saddle And Side Wire Stitcher Relationship Specialty Start Date End Date Maria A Younger MD [address] [place] [address] PCP - General Family Medicine 04/14/23
--- OUTSIDE RECORDS SUMMARY | 2024-05-23 09:20 | XMS_ITS | Encounter Summary ---
Author Organization [facility] Address [address] [place] [address] Phone Care Team Providers Care Concrete Smoother Name Role Phone Tiffanie Child MD Primary Care Provider + [phone] Mercedez Strauss MD Primary Care Provider + [phone] Maria A Younger MD Primary Care Provider + [phone] Reason for Visit * Reason Comments Medication Refill Encounter Details Date Type Department Care Team (Late st Contact Info) Description 05/03/2020 Refill [facility] - [place] [address] [place] [address] Tiffanie Child MD [address] [place] [address] Medication Refill Social History Tobacco [...] have Coronavirus / COVID-19? No / Unsure 04/10/2020 9:01 AM LINEMAN SERVICE OR WORK DISPATCHER documented as of this encounter Plan of Treatment Upcoming Encounters Date Type Department Care Team (Late st Contact Info) Description 06/02/2024 4:00 PM CDT Office Visit [facility] - [place] [address] [place] [address] Marissa Khan, CANDY CUTTER MACHINE, PACKING FLOOR WORKER [address] [place] [address] documented as of this encounter Visit Diagnoses Diagnosis Hypothyroidism (acquired) Unspecified hypothyroidism documented in this encounter Additional Health Concerns Infection Onset Date Last Indicated Resolved Time COVID - 19 01/31/2022 01/31/2022 02/10/2022 12:1 9 AM LINEMAN SERVICE OR WORK DISPATCHER Assessment Noted Time PHQ-9 Depression Total Score: 0 03/17/19 20 11:00 AM LINEMAN SERVICE OR WORK DISPATCHER documented as of this encounter Care Teams Concrete Smoother Relationship Specialty Start Date End Date Tiffanie Child MD PCP - General Family Medicine 11/25/14 02/13/22 Mercedez Strauss MD [address] [place] [address] PCP - General Family Medicine 02/14/22 04/13/23 Maria A Younger MD [address] [place] [address] PCP - General Family Medicine 04/14/23 documented as of this encounter
--- NOTE | 2024-05-23 09:21 | ED.URI ---
HPI - URI/Sore Throat General Chief Complaint: Upper Respiratory Infection Stated Complaint: Cough Time Seen by Provider: 05/23/24 09:09 Source: patient and RN notes reviewed Mode of arrival: ambulatory Limitations: no limitations History of Present Illness HPI Narrative: Patient presents today complaining of a 2 week history of cough that has worsened over the last 2-3 days, sore throat, nasal congestion and sinus pressure, rhinorrhea, shortness of breath with exertion. Denies fever. 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 She has tried Coricidin and Advil without much relief. History of COPD. Related Data Home Medications ?Medication ?Instructions ?Recorded ?Confirmed ?Last Taken ?Type alendronate 70 mg tablet mg PO 05/23/24 Unknown History atenolol 50 mg tablet mg 05/23/24 Unknown History atorvastatin 10 mg tablet mg 05/23/24 Unknown History levothyroxine 50 mcg tablet mcg 05/23/24 Unknown History lisinopril 20 tablet 05/23/24 Unknown History mg-hydrochlorothiazide 12.5 mg tablet Allergies Allergy/AdvReac Type Severity Reaction Status Date / Time levofloxacin (From [facility]) Allergy Unknown Unknown Verified 05/23/24 09:09 Penicillins Allergy Unknown Unknown Verified 05/23/24 09:09 Review of Systems Review of Systems: CONSTITUTIONAL: Denies body aches, fever, chills, or sweats. EYES: Denies visual changes, redness, or discharge. ENT: + rhinorrhea, congestion, sinus pressure, sneezing CARDIOVASCULAR: Denies chest pain, palpitations, or edema. RESPIRATORY: + cough, shortness of breath with exertion GASTROINTESTINAL: Denies abdominal pain, nausea, vomiting, or diarrhea. GENITOURINARY: Denies dysuria or hematuria. SKIN: Denies rash, itching, or wounds. MUSCULOSKELETAL: Denies back pain, joint pain, or myalgia. NEUROLOGIC: Denies headache, numbness, tingling, or weakness. PSYCH: Denies depression or anxiety. [facility] Past Medical History Medical History (Updated 05/23/24 @ 09:48 by Lou Allen, [employer], ) Hypertension High cholesterol Hypothyroidism COPD (chronic obstructive pulmonary disease) Comments At time of signature, I have reviewed and agree with nursing past medical, surgical, social and family history unless otherwise noted. Please see nursing chart for further information. There is no relevant family history pertinent to the presenting complaint Exam Narrative: GENERAL: Well-appearing, well-nourished, and in no acute distress. HEAD: Normocephalic, atraumatic. EYES: EOMI. No redness or drainage. Conjunctivae normal. ENT: Mucous membranes pink and moist. Nares congested with rhinorrhea. TMs normal bilaterally. Throat normal. Uvula midline. NECK: Normal AROM. Supple. No lymphadenopathy. CHEST: No respiratory distress. Diminished throughout. HEART: Regular rate and rhythm. No murmur appreciated. EXTREMITIES: Normal range of motion. No edema. SKIN: Warm, dry, no rash. Capillary refill normal. Normal skin turgor. NEURO: No focal deficits. Alert and oriented x3. Gait steady. PSYCH: Normal affect. No signs of depression or anxiety. Course Course Level of Care: Express Care Visit Vital Signs Vital signs: Vital Signs Temperature 98.4 F 05/23/24 08:58 Pulse Rate 65 05/23/24 08:58 Respiratory Rate 20 05/23/24 08:58 Blood Pressure 157/98 H 05/23/24 08:58 Pulse Oximetry 96 05/23/24 08:58 Oxygen Delivery Room Air 05/23/24 08:58 Temperature 98.4 F 05/23/24 08:58 Pulse Rate 65 05/23/24 08:58 Respiratory Rate 20 05/23/24 08:58 Blood Pressure 157/98 H 05/23/24 08:58 Pulse Oximetry 96 05/23/24 08:58 Oxygen Delivery Room Air 05/23/24 08:58 Reviewed MDM - URI/Sore Throat MDM Narrative Medical decision making narrative: Chest x-ray negative. Patient will be treated for sinusitis with doxycycline as she is allergic to penicillin. She will also be treated with prednisone for COPD exacerbation. Anticipatory guidance and ED precautions given. Differential Diagnosis Differential diagnosis: Likely upper respiratory infection, sinusitis, viral infection and other (Pneumonia, COPD exacerbation) Imaging Data Radiologist's impression: ITS Impressions Chest X-Ray 05/23/24 09:38 Impression: Normal chest. Critical Care Time Critical Care Time Critical Care Time: No Discharge Plan Discharge Clinical Impression: COPD exacerbation Sinusitis Qualifiers: Sinusitis location: frontal Chronicity: acute Recurrence: non-recurrent Qualified Code(s): J01.10 - Acute frontal sinusitis, unspecified Patient Disposition: Home, Self-Care Condition: Stable Instructions: Antibiotic Form, Sinusitis (ED), COPD (Chronic Obstructive Pulmonary Disease) (DC) Additional Instructions: Your chest x-ray is negative for pneumonia. Please take the doxycycline and prednisone as directed. Take Mucinex during the day to help break up any chest congestion. Follow-up with your PCP in 3-4 days if symptoms are not improving. Go to the ER immediately if symptoms worsen. Your blood pressure was elevated above 120/80 today at Urgent Care. This puts you above the threshold for follow up. Please schedule a followup visit with your personal physician as soon as possible, for further evaluation and treatment. Even blood pressure exceeding 120/80 may indicate pre-hypertension. Patient Language: Romanian Prescriptions: New prednisone 20 mg tablet 40 mg PO DAILY 5 Days Qty: 10 0RF doxycycline hyclate 100 mg tablet 100 mg PO BID 7 Days Qty: 14 0RF No Action atorvastatin 10 mg tablet lisinopril-hydrochlorothiazide 20-12.5 mg tablet alendronate 70 mg tablet PO levothyroxine 50 mcg tablet atenolol 50 mg tablet Follow-up/Referrals: PHYSICIAN NOT ON STAFF,NONSTAFF [Primary Care Provider] - Time of Disposition: 09:50
== END 2024-05-23 09:55 | disposition home or self-care (01) ==
PROVIDERS: Emergency Provider Nurse Practitioner
DX: J44.1 Chronic obstructive pulmonary disease with (acute) exacerbation (principal); J01.10 Acute frontal sinusitis, unspecified; I10 Essential (primary) hypertension; E78.00 Pure hypercholesterolemia, unspecified; E03.9 Hypothyroidism, unspecified
CPT/HCPCS: 71046; 99203; G0463